=== PATIENT | female | born 1985 | race Caucasian/White ===

== ENCOUNTER → 2022-07-31 13:09 | Outpatient (BNVA) | payer OTHER, SELFPAY | PROVIDERS: Family Provider Electrodiagnostic Medicine; PCP Family Medicine; Visit Provider Family Medicine | DX: E03.9 Hypothyroidism, unspecified (principal); F32.9 Major depressive disorder, single episode, unspecified | CPT/HCPCS: 84443 ==

== ENCOUNTER → 2023-04-17 13:38 | Outpatient (BNVA) | payer OTHER, SELFPAY | PROVIDERS: Family Provider Electrodiagnostic Medicine; PCP Family Medicine; Visit Provider Family Medicine | DX: E03.9 Hypothyroidism, unspecified (principal); Z98.84 Bariatric surgery status; F32.9 Major depressive disorder, single episode, unspecified; Z76.89 Persons encountering health services in other specified circumstances | CPT/HCPCS: 84443 ==

== ENCOUNTER → 2023-05-29 09:09 | Outpatient (BNVA) | payer OTHER, SELFPAY | PROVIDERS: Family Provider Electrodiagnostic Medicine; PCP Family Medicine; Visit Provider Family Medicine | DX: E03.9 Hypothyroidism, unspecified (principal); F32.9 Major depressive disorder, single episode, unspecified | CPT/HCPCS: 84443 ==

== ENCOUNTER → 2024-03-05 08:04 | Outpatient (BNVA) | payer OTHER, SELFPAY | PROVIDERS: Family Provider Electrodiagnostic Medicine; PCP Family Medicine; Visit Provider Family Medicine | DX: Z00.00 Encounter for general adult medical examination without abnormal findings (principal); E03.9 Hypothyroidism, unspecified; F32.9 Major depressive disorder, single episode, unspecified | CPT/HCPCS: 80053; 80061; 83036; 84443 ==

== ENCOUNTER → 2024-12-13 09:15 | Outpatient (BNVA) | payer OTHER, SELFPAY | PROVIDERS: Family Provider Electrodiagnostic Medicine; PCP Family Medicine; Visit Provider Family Medicine | DX: E03.9 Hypothyroidism, unspecified (principal); Z12.4 Encounter for screening for malignant neoplasm of cervix; N39.3 Stress incontinence (female) (male) | CPT/HCPCS: 80053; 81003; 84443; 87624 ==

== ENCOUNTER 2025-01-03 10:07 | Outpatient (CLI) | payer OTHER, SELFPAY ==
--- NOTE | 2025-01-03 10:20 | MM_ITS ---
WS: [email or web address] VIEWS: MLO and CC views both breasts. 3D digital tomosynthesis is also included in this exam. No previous exams Findings: There are scattered areas of fibroglandular density. 12 mm partially obscured ovoid nodule in the subareolar area of the RIGHT breast. There is also a questionable second nodule with possible architectural distortion in the medial anterior RIGHT breast seen best on the cc view. Compression spot images as well as regional ultrasound recommended for further work-up. In the LEFT breast there is a 12 mm ovoid nodule seen in the retroareolar area. There is also a questionable asymmetric parenchymal density deep in the upper outer quadrant of the LEFT breast seen on the cc view only. Compression spot images of the LEFT breast as well as regional ultrasound is suggested for further work-up. MM/MM scr BI tomosynthesis [id number] Impression: BI-RADS: 0 - Incomplete: Need additional imaging evaluation FOLLOW-UP: Need Additional Imaging This mammogram was also analyzed by the Computer Aided Detection System R2 Imag e [employer] Manager.
== END 2025-01-03 10:08 | disposition home or self-care (01) ==
PROVIDERS: Family Provider Electrodiagnostic Medicine; PCP Family Medicine; Visit Provider Family Medicine
DX: Z12.31 Encounter for screening mammogram for malignant neoplasm of breast (principal); R92.323 Mammographic fibroglandular density, bilateral breasts; N63.10 Unspecified lump in the right breast, unspecified quadrant; R92.8 Other abnormal and inconclusive findings on diagnostic imaging of breast; N63.20 Unspecified lump in the left breast, unspecified quadrant; N63.21 Unspecified lump in the left breast, upper outer quadrant
CPT/HCPCS: 77063; 77067

== ENCOUNTER 2025-02-07 07:52 | Outpatient (CLI) | payer OTHER, SELFPAY ==
--- NOTE | 2025-02-07 07:55 | MM_ITS ---
WS: [email or web address] VIEWS: MLO, CC, and ML views both breasts. 3D digital tomosynthesis is also included in this exam. Comparison made with prior exam of 01/03/2025. Findings: There are scattered areas of fibroglandular density. A persistent 1.5 cm ovoid nodule seen in the RIGHT retroareolar area. No other discrete suspicious finding in either breast. No areas of suspicious calcification or architectural distortion. Continued recommendation of the bilateral regional ultrasound evaluation. MM/MM diag BI tomosynthesis [id number] Impression: BI-RADS: 0 - Incomplete: Need additional imaging evaluation FOLLOW-UP: Need Additional Imaging This mammogram was also analyzed by the Computer Aided Detection System R2 Imag e [employer] Architect.
--- NOTE | 2025-02-07 07:55 | US_ITS ---
WS: [email or web address] Exam: US breast BI limited* [id number] Date/Time of Exam: 02/07/2025 9:02 AM Reason For Exam: birad-0 screening mammo Regional ultrasound of the retroareolar area of the RIGHT breast shows the sharply circumscribed hypoechoic solid ovoid nodule in the retroareolar area measuring 1 x 1.2 x 0.6 cm. This has benign appearance and most likely represents a small fibroadenoma. There was no other significant finding in the R IGHT breast. Ultrasound evaluation of the LEFT breast shows a tiny hypoechoic solid ovoid nodule at the 12 o'clock position having the appearance of an intramammary lymph node. No suspicious nodule or mass identified in the LEFT breast. Recommendations: Continue yearly screening mammography. US/US breast BI limited* [id number] IMPRESSION: 1. 1 x 1.2 x 0.6 cm ovoid hypoechoic solid nodule in the retroareolar area of t he RIGHT breast having benign appearance most likely a fibroadenoma. 2. Subcentimeter ovoid solid nodule at the 12 o'clock position in the LEFT [address] st have the appearance of an intramammary lymph node. 3. No suspicious masses or nodules identified in either breast.
== END 2025-02-07 07:53 | disposition home or self-care (01) ==
PROVIDERS: Family Provider Electrodiagnostic Medicine; PCP Family Medicine; Visit Provider Family Medicine
DX: R92.8 Other abnormal and inconclusive findings on diagnostic imaging of breast (principal); R92.323 Mammographic fibroglandular density, bilateral breasts; N63.10 Unspecified lump in the right breast, unspecified quadrant; N63.25 Unspecified lump in the left breast, overlapping quadrants
CPT/HCPCS: 76642; 77062; G0279